=== PATIENT | female | born 1950 | race Caucasian/White ===

== ENCOUNTER → 2021-05-06 | Outpatient (CLI) | payer MEDICARE ==
[~2021-05-06] MED LIST: BAMLANIVIMAB (EUA) 700 MG, ETESEVIMAB (EUA) 1,400 MG in NS 50ML 50 ML IV ONE
[2021-05-06 11:45] VITALS: BP 182/99
[2021-05-06 12:26] VITALS: BP 140/87
[2021-05-06 13:30] VITALS: BP 147/70
== END | disposition home or self-care (01) ==
LOC: OPTX 12:30
DX: U07.1 COVID-19 (principal)
CPT/HCPCS: M0245; Q0245; Q0239